=== PATIENT | male | born 1935 | race Caucasian/White ===

== ENCOUNTER 2023-10-09 15:12 | Emergency (ER) | payer MEDICARE ==
[2023-10-09] MEDS ORDERED: Ketorolac Tromethamine 30 MG (1 mL) VIAL ONE (16:28)
== END 2023-10-09 18:02 | disposition home or self-care (01) ==
LOC: MADERS 15:12
DX: M16.12 Unilateral primary osteoarthritis, left hip (principal)
CPT/HCPCS: J1885

== ENCOUNTER 2024-01-02 14:07 | Inpatient (IN) | payer MEDICARE ==
[2024-01-02 16:09] VITALS: BMI 19.8
[2024-01-02] MEDS ORDERED: Milk Of Magnesia 30 ML UDCUP PO PRN (16:21)
[2024-01-02] MEDS: Lantiseptic Ointment 130 GM JAR TOP SCH (21:02)
[2024-01-02] MEDS: Arformoterol 15 MCG/2 ML NEB NEB SCH (21:02)
[2024-01-02] MEDS: Nitrofurantoin Monohyd/M-Cryst 100 MG CAP PO SCH (21:03)
[2024-01-02] MEDS: Simvastatin 20 MG TAB PO SCH (21:03)
[2024-01-02] MEDS: Gabapentin 100 MG CAP PO SCH (21:03)
[2024-01-02] MEDS: Metoprolol Tartrate 50 MG TAB PO SCH (21:03)
[2024-01-02] MEDS: Senokot S 8.6-50 MG TAB PO SCH (21:03)
[2024-01-02] MEDS: Doxycycline 100 MG CAP PO SCH (21:03)
[2024-01-02] MEDS: Apixaban 2.5 MG TAB PO SCH (21:04)
[2024-01-02] MEDS: guaiFENesin ER 600 MG TAB PO SCH (21:04)
[2024-01-03] MEDS: Pantoprazole DR 40 MG TAB PO SCH (08:28)
[2024-01-03] MEDS: Furosemide 20 MG TAB PO SCH (08:28)
[2024-01-03] MEDS: Amlodipine 5 MG TAB PO SCH (08:28)
[2024-01-03] MEDS: Empagliflozin 10 MG TAB PO SCH (08:28)
[2024-01-03] MEDS: Folic Acid 1 MG TAB PO SCH (08:29)
[2024-01-03] MEDS: Finasteride 5 MG TAB PO SCH (08:29)
[2024-01-03] MEDS: Ferrous Gluconate 324 MG TAB PO SCH (08:29)
[2024-01-03] MEDS: Tamsulosin HCl 0.4 MG CAP PO SCH (08:30)
[2024-01-03] MEDS: Melatonin 3 MG TAB PO PRN (20:36)
[2024-01-04 07:26] LABS: #Eosinphils 0.1 thou/uL (0.0-0.7); #Lymphocytes 1.3 thou/uL (1.20-3.40); #Monocytes 0.5 thou/uL (0.11-0.59); #Neutrophils 5.6 thou/uL (1.40-6.50); %Basophils 0.5 % (0.0-1.0); %Eosinophils 1.3 % (0.0-10.0); %Lymphocytes 17.7 % (21.0-51.0); %Monocytes 5.9 % (0.0-10.0); %Neutrophils 74.5 % (42.0-75.0); Hematocrit 40.8 % (42.0-52.0); Mean Corpuscular HGB CONC 29.3 g/dL (32.0-36.0); Mean Corpuscular Hemoglobin 30.6 pg (27.0-31.0); Mean Corpuscular Volume 104.4 fl (78.0-98.0); Mean Platelet Volume 6.2 fL (7.4-10.4); Platelet Count 189 10x3/uL (130-400); RBC Distribution Width 17.4 % (11.5-14.5); Red Blood Cell (RBC) Count 3.91 mill/uL (4.70-6.10); White Blood Cell (WBC) Count 7.6 10x3/uL (4.8-10.8)
[2024-01-04 07:30] LABS: Anion Gap 14 mmol/L (10-20); BUN (Urea Nitrogen) 38 mg/dL (8.4-25.7); Calc. Creatinine Clearance 28 mL/min (70-130); Calcium 9.1 mg/dL (7.8-10.44); Carbon Dioxide 28 mmol/L (23-31); Chloride 103 mmol/L (98-107); Estimated GFR 41; Glucose 85 mg/dL (83-110); Potassium 3.9 mmol/L (3.5-5.1); Sodium 141 mmol/L (136-145)
[2024-01-04] MEDS: Ipratropium/Albuterol 3 ML NEB NEB PRN (08:29)
[2024-01-05] MEDS: Acetaminophen 325 MG TAB PO PRN (11:36)
[2024-01-10 10:59] VITALS: BMI 19.7
[2024-01-13 08:13] VITALS: BP 116/54; TEMP 98.1
== END 2024-01-13 13:45 | disposition home or self-care (01) | DRG 947 ==
LOC: MADMS 15:25
PROVIDERS: ADMIT Family Medicine; ATTEND Family Medicine
DX: R53.81 Other malaise (principal); J18.9 Pneumonia, unspecified organism; N39.0 Urinary tract infection, site not specified; L03.116 Cellulitis of left lower limb; D61.818 Other pancytopenia; I50.32 Chronic diastolic (congestive) heart failure; R53.1 Weakness; I48.0 Paroxysmal atrial fibrillation; Z79.01 Long term (current) use of anticoagulants; Z99.81 Dependence on supplemental oxygen; I25.10 Atherosclerotic heart disease of native coronary artery without angina pectoris; Z79.899 Other long term (current) drug therapy; I25.2 Old myocardial infarction; N40.0 Benign prostatic hyperplasia without lower urinary tract symptoms; Z98.890 Other specified postprocedural states; Z87.891 Personal history of nicotine dependence; N18.30 Chronic kidney disease, stage 3 unspecified; Z66 Do not resuscitate
CPT/HCPCS: 36415; 71046; 80048; 85025; 97602; J7620

== ENCOUNTER 2024-01-28 18:23 | Emergency (ER) | payer MEDICARE ==
[2024-01-28] MEDS ORDERED: Sodium Chloride 0.9% 100 ML ONE (19:23)
[2024-01-28] MEDS ORDERED: Acetaminophen 500 MG TAB ONE (19:23)
[2024-01-28] MEDS ORDERED: Vancomycin 1 GM VIAL ONE (19:23)
[2024-01-28] MEDS ORDERED: Ondansetron PF 4 MG/2 ML Vial ONE (19:23)
[2024-01-28] MEDS ORDERED: Piperacillin/Tazobactam 4.5 GM VIAL ONE (19:23)
[2024-01-28] MEDS ORDERED: Sodium Chloride 0.9% 250 ML 250 ML ONE (19:25)
[2024-01-28 19:29] LABS: Anisocytosis SLIGHT = 6-15 cells (100X) (0-5/hpf); Band 6 % (5-11); Eosinophils 1 % (0-10); Hematocrit 32.5 % (42.0-52.0); Hemoglobin 9.6 g/dL (14.0-18.0); Hypochromia SLIGHT = 6-15 cells (100X) (0-5/hpf); Lymphocytes 3 % (21-51); MDiff Complete? YES; Macrocytosis SLIGHT = 6-15 cells (100X) (0-5/hpf); Mean Corpuscular HGB CONC 29.5 g/dL (32.0-36.0); Mean Corpuscular Hemoglobin 32.5 pg (27.0-31.0); Mean Platelet Volume 6.2 fL (7.4-10.4); Monocytes 2 % (0-10); Neutrophil 84 % (42-75); Platelet Count 105 10x3/uL (130-400); Poikilocytosis SLIGHT = 6-15 cells (100X) (0-5/hpf); Polychromasia SLIGHT = 2-3 cells (100X) (0-2/hpf); RBC Distribution Width 18.5 % (11.5-14.5); Red Blood Cell (RBC) Count 2.96 mill/uL (4.70-6.10); Troponin I 0.022 ng/mL (< 0.028); White Blood Cell (WBC) Count 7.3 10x3/uL (4.8-10.8)
[2024-01-28 19:30] LABS: ALT (SGPT) 15 U/L (8-55); AST (SGOT) 21 U/L (5-34); Albumin 3.7 g/dL (3.4-4.8); Alkaline Phosphatase 218 U/L (40-110); Anion Gap 20 mmol/L (10-20); BUN (Urea Nitrogen) 42 mg/dL (8.4-25.7); Bilirubin, Total 1.5 mg/dL (0.2-1.2); Calc. Creatinine Clearance 0 mL/min (70-130); Carbon Dioxide 22 mmol/L (23-31); Chloride 105 mmol/L (98-107); Estimated GFR 20; Globulin 3.3 g/dL (2.4-3.5); Glucose 95 mg/dL (83-110); Lipase 53 U/L (8-78); Magnesium 2.5 mg/dL (1.6-2.6); Manual Diff?? YES; Platelet Adequacy Comment Appears Decreased; Potassium 4.5 mmol/L (3.5-5.1); Reactive Lymphocytes 4 % (0-10); Sodium 142 mmol/L (136-145)
[2024-01-28 20:02] LABS: Influenza A by NAA Not Detected (NotDetected); Influenza B by NAA Not Detected (NotDetected); SARS-CoV-2 NAA Rapid Test Not Detected (NotDetected)
[2024-01-28 20:46] LABS: Bilirubin Negative (Negative); Blood, Urine Negative (Negative); CAUTI Indications for Culture Fever or rigors; Clarity Clear (Clear); Glucose, Urine (Dipstick) 100 mg/dL (Negative); Ketone, Urine Negative (Negative); Leukocyte Negative (Negative); Nitrite Negative (Negative); Protein, Urine (Dipstick) Negative (Neg-Trace); RBC/HPF None Seen HPF (0-3); Specific Gravity, Urine 1.015 (1.005-1.030); Squamous Epithelial 0-3 HPF (0-3); Urobilinogen 0.2 mg/dL (Less than 2); WBC/HPF None Seen HPF (0-3)
[2024-01-28 20:47] LABS: Urine Culture Reflex No No
[2024-01-28] MEDS ORDERED: Sodium Chloride 0.9% 1,000 ML ONE (21:29)
== END 2024-01-28 23:57 | disposition short-term general hospital (02) ==
LOC: MADERS 18:23
DX: R50.9 Fever, unspecified (principal); N17.9 Acute kidney failure, unspecified; R53.1 Weakness; I11.0 Hypertensive heart disease with heart failure; I50.9 Heart failure, unspecified
CPT/HCPCS: 71045; 74176; 80053; 81001; 83605; 83690; 83735; 83880; 84484; 85025; 87040; 87077; 87086; 87149; 87186; 93005; 96365; 96366; 96375; J2405; J2543; J3370; J3490; J7050

== ENCOUNTER 2024-02-12 07:56 | Day surgery (SDC) | payer MEDICARE | END 2024-02-12 08:30 | disposition home or self-care (01) | LOC: MADER/OP 07:56 → EDSTATUS 14:16 | PROVIDERS: ATTEND Radiology Vascular & Interventional Radiology | DX: Z45.2 Encounter for adjustment and management of vascular access device (principal) | CPT/HCPCS: J1642 ==

== ENCOUNTER 2024-04-10 14:33 | Inpatient (IN) | payer MEDICARE, OTHER ==
[2024-04-10 19:16] VITALS: BMI 23.3
[2024-04-10] MEDS: Tamsulosin HCl 0.4 MG CAP PO SCH (21:21)
[2024-04-10] MEDS: HYDROcodone/Acetaminophen 10/325 mg Tablet PO PRN (21:21)
[2024-04-10] MEDS: Gabapentin 100 MG CAP PO SCH (21:22)
[2024-04-10] MEDS: Simvastatin 5 MG TAB PO SCH (21:23)
[2024-04-10] MEDS: Arformoterol 15 MCG/2 ML NEB NEB SCH (21:23)
[2024-04-10] MEDS: Senokot S 8.6-50 MG TAB PO SCH (21:23)
[2024-04-11] MEDS: Acetaminophen/Codeine 30-300mg Tablet PO PRN (01:44)
[2024-04-11] MEDS ORDERED: EPOETIN ALFA-EPBX (ESRD) 10,000 UNITS/ML VIAL SC SCH (09:00)
[2024-04-11] MEDS: Sodium Bicarbonate Tab 325 MG TAB PO SCH (09:41)
[2024-04-11] MEDS: Ferrous Sulfate 300 MG (5 mL) UDCUP PO SCH (09:41)
[2024-04-11] MEDS: Folic Acid 1 MG TAB PO SCH (09:44)
[2024-04-11] MEDS: Empagliflozin 10 MG TAB PO SCH (09:44)
[2024-04-11] MEDS: Pantoprazole DR 40 MG TAB PO SCH (09:44)
[2024-04-11] MEDS: Aspirin 81 mg Enteric Coated Tablet PO SCH (09:44)
[2024-04-11] MEDS: Finasteride 5 MG TAB PO SCH (09:45)
[2024-04-11] MEDS: Amlodipine 5 MG TAB PO SCH (09:45)
[2024-04-11] MEDS: Ferrous Gluconate 324 MG TAB PO SCH (09:47)
[2024-04-11] MEDS: Metoprolol Tartrate 25 MG TAB PO SCH ×2 (10:05→20:31)
[2024-04-11] MEDS: Bacitracin 1 PK TOP SCH ×2 (11:54→20:31)
[2024-04-11] MEDS: Ondansetron ODT 4 MG TAB PO PRN (21:19)
[2024-04-12] MEDS: HYDROcodone/Acetaminophen 10/325 mg Tablet PO PRN (04:57)
[2024-04-12 05:23] LABS: ALT (SGPT) 10 U/L (8-55); AST (SGOT) 20 U/L (5-34); Albumin 2.4 g/dL (3.4-4.8); Alkaline Phosphatase 139 U/L (40-110); Anion Gap 14 mmol/L (10-20); BUN (Urea Nitrogen) 29 mg/dL (8.4-25.7); Bilirubin, Total 2.9 mg/dL (0.2-1.2); Calc. Creatinine Clearance 40 mL/min (70-130); Calcium 8.6 mg/dL (7.8-10.44); Carbon Dioxide 22 mmol/L (23-31); Chloride 109 mmol/L (98-107); Estimated GFR 52; Globulin 3.4 g/dL (2.4-3.5); Glucose 104 mg/dL (83-110); Potassium 4.3 mmol/L (3.5-5.1); Protein, Total 5.8 g/dL (5.8-8.1); Sodium 141 mmol/L (136-145)
[2024-04-12 05:24] LABS: Anisocytosis SLIGHT = 6-15 cells (100X) (0-5/hpf); Band 3 % (5-11); Eosinophils 3 % (0-10); Hematocrit 26.8 % (42.0-52.0); Hemoglobin 8.2 g/dL (14.0-18.0); Lymphocytes 16 % (21-51); MDiff Complete? YES; Macrocytosis SLIGHT = 6-15 cells (100X) (0-5/hpf); Mean Corpuscular HGB CONC 30.8 g/dL (32.0-36.0); Mean Corpuscular Hemoglobin 30.6 pg (27.0-31.0); Mean Corpuscular Volume 99.6 fl (78.0-98.0); Mean Platelet Volume 6.5 fL (7.4-10.4); Monocytes 8 % (0-10); Neutrophil 70 % (42-75); Ovalocytes SLIGHT = 2-5 cells (100X) (0-1/hpf); Platelet Adequacy Comment Appears Decreased; Platelet Count 93 10x3/uL (130-400); Polychromasia SLIGHT = 2-3 cells (100X) (0-2/hpf); RBC Distribution Width 21.1 % (11.5-14.5); Red Blood Cell (RBC) Count 2.69 mill/uL (4.70-6.10); White Blood Cell (WBC) Count 6.2 10x3/uL (4.8-10.8)
[2024-04-12] MEDS: Ferrous Sulfate 300 MG (5 mL) UDCUP PO SCH (08:10)
[2024-04-13] MEDS: Acetaminophen 325 MG TAB PO PRN (09:01)
[2024-04-13 09:53] LABS: ALT (SGPT) 11 U/L (8-55); AST (SGOT) 21 U/L (5-34); Albumin 2.6 g/dL (3.4-4.8); Alkaline Phosphatase 139 U/L (40-110); Anion Gap 14 mmol/L (10-20); BUN (Urea Nitrogen) 42 mg/dL (8.4-25.7); Bilirubin, Total 3.4 mg/dL (0.2-1.2); Calc. Creatinine Clearance 33 mL/min (70-130); Calcium 8.5 mg/dL (7.8-10.44); Carbon Dioxide 22 mmol/L (23-31); Chloride 108 mmol/L (98-107); Estimated GFR 43; Globulin 3.2 g/dL (2.4-3.5); Glucose 102 mg/dL (83-110); Potassium 4.7 mmol/L (3.5-5.1); Protein, Total 5.8 g/dL (5.8-8.1); Sodium 139 mmol/L (136-145)
[2024-04-13 10:02] LABS: Anisocytosis SLIGHT = 6-15 cells (100X) (0-5/hpf); Band 12 % (5-11); Eosinophils 1 % (0-10); Hematocrit 25.9 % (42.0-52.0); Hemoglobin 7.9 g/dL (14.0-18.0); Hypochromia SLIGHT = 6-15 cells (100X) (0-5/hpf); Lymphocytes 9 % (21-51); MDiff Complete? YES; Macrocytosis SLIGHT = 6-15 cells (100X) (0-5/hpf); Mean Corpuscular HGB CONC 30.4 g/dL (32.0-36.0); Mean Corpuscular Hemoglobin 30.5 pg (27.0-31.0); Mean Corpuscular Volume 100.4 fl (78.0-98.0); Mean Platelet Volume 6.5 fL (7.4-10.4); Monocytes 5 % (0-10); Neutrophil 73 % (42-75); Platelet Adequacy Comment Appears Decreased; Platelet Count 83 10x3/uL (130-400); Red Blood Cell (RBC) Count 2.58 mill/uL (4.70-6.10); White Blood Cell (WBC) Count 4.2 10x3/uL (4.8-10.8)
[2024-04-13] MEDS: Piperacillin/Tazobactam 3.375 GM in Sodium Chloride 0.9% 100 ML IVPB SCH ×3 (11:17→16:11)
[2024-04-13] MEDS: Sodium Chloride 0.9% 1,000 ML IV SCH (11:19)
[2024-04-13 11:54] LABS: Blood, Urine Negative (Negative); Glucose, Urine (Dipstick) 500 mg/dL (Negative); Ketone, Urine Negative (Negative); Leukocyte Negative (Negative); Nitrite Negative (Negative); Protein, Urine (Dipstick) Negative (Neg-Trace); Specific Gravity, Urine 1.015 (1.005-1.030)
[2024-04-13 11:56] LABS: Bilirubin Unable to Interpret (Negative); Clarity Hazy (Clear); Urobilinogen UNABLE TO INTERPRET mg/dL (Less than 2)
[2024-04-13 12:02] LABS: Bacteria/HPF 2+ HPF (None Seen); CAUTI Indications for Culture Fever or rigors; RBC/HPF 0-3 HPF (0-3); WBC/HPF 0-3 HPF (0-3)
[2024-04-13 12:03] LABS: Urine Culture Reflex No No
[2024-04-13] MEDS: Vancomycin 1 GM in Sodium Chloride 0.9% 250 ML 250 ML IVPB SCH (12:37)
[2024-04-13] MEDS: Vancomycin HCl 750 MG in Sodium Chloride 0.9% 250 ML 250 ML IVPB SCH (14:06)
[2024-04-13] MEDS ORDERED: Vancomycin Dose by Levels Sliding Scale (Wt 71-99) FS SCH (19:45)
[2024-04-13] MEDS ORDERED: Vancomycin 1.5 GM in Sodium Chloride 0.9% 250 ML 300 ML IVPB SCH (21:00)
[2024-04-14 12:34] LABS: Vancomycin, Trough 11.9 ug/mL
[2024-04-14] MEDS: Vancomycin HCl 750 MG in Sodium Chloride 0.9% 250 ML 250 ML IVPB SCH (13:41)
[2024-04-15 06:01] LABS: Eosinophils 4 % (0-10); Hematocrit 22.9 % (42.0-52.0); Hemoglobin 6.9 g/dL (14.0-18.0); Lymphocytes 24 % (21-51); MDiff Complete? YES; Mean Corpuscular HGB CONC 29.9 g/dL (32.0-36.0); Mean Corpuscular Hemoglobin 30.2 pg (27.0-31.0); Mean Platelet Volume 7.4 fL (7.4-10.4); Monocytes 9 % (0-10); Neutrophil 63 % (42-75); Platelet Count 81 10x3/uL (130-400); RBC Distribution Width 20.2 % (11.5-14.5); Red Blood Cell (RBC) Count 2.27 mill/uL (4.70-6.10); White Blood Cell (WBC) Count 2.9 10x3/uL (4.8-10.8)
[2024-04-15 06:08] LABS: ALT (SGPT) 10 U/L (8-55); AST (SGOT) 19 U/L (5-34); Albumin 2.3 g/dL (3.4-4.8); Alkaline Phosphatase 120 U/L (40-110); Anion Gap 12 mmol/L (10-20); BUN (Urea Nitrogen) 56 mg/dL (8.4-25.7); Calc. Creatinine Clearance 32 mL/min (70-130); Calcium 8.3 mg/dL (7.8-10.44); Carbon Dioxide 21 mmol/L (23-31); Chloride 110 mmol/L (98-107); Estimated GFR 40; Globulin 2.8 g/dL (2.4-3.5); Glucose 89 mg/dL (83-110); Potassium 4.6 mmol/L (3.5-5.1); Protein, Total 5.1 g/dL (5.8-8.1); Sodium 138 mmol/L (136-145)
[2024-04-15 12:33] LABS: Vancomycin, Random 14.2 ug/mL (See Comment)
[2024-04-15] MEDS: Vancomycin HCl 750 MG in Sodium Chloride 0.9% 250 ML 250 ML IVPB SCH (13:59)
[2024-04-15] MEDS ORDERED: Triamcinolone 0.1% Cream 15 GM TUBE TOP PRN (16:26)
[2024-04-15] MEDS: Ferrous Sulfate 325 MG TAB PO SCH (16:35)
[2024-04-15 16:49] LABS: Hematocrit 22.9 % (42.0-52.0); Hemoglobin 6.9 g/dL (14.0-18.0)
[2024-04-16] MEDS: Triamcinolone 0.1% Cream 15 GM TUBE TOP SCH (00:35)
[2024-04-16 05:14] LABS: Hematocrit 25.3 % (42.0-52.0); Hemoglobin 7.8 g/dL (14.0-18.0)
[2024-04-16] MEDS: Piperacillin/Tazobactam 3.375 GM in Sodium Chloride 0.9% 100 ML IVPB SCH (05:56)
[2024-04-16] MEDS: Furosemide 20 MG TAB PO SCH (05:56)
[2024-04-16] MEDS: Emollient 15 oz bottle 450 ML, Triamcinolone Acetonide 200 MG TOP SCH (08:58)
[2024-04-16] MEDS ORDERED: Emollient 15 oz bottle 450 ML, Triamcinolone Acetonide 200 MG TOP PRN (09:00)
[2024-04-16] MEDS: Keri Lotion 15 oz BOT TOP PRN (11:39)
[2024-04-16 14:21] LABS: Vancomycin, Trough 14.8 ug/mL
[2024-04-16] MEDS: Vancomycin HCl 750 MG in Sodium Chloride 0.9% 250 ML 250 ML IVPB SCH (18:00)
[2024-04-16] MEDS: Keri Lotion 15 oz BOT TOP SCH (20:18)
[2024-04-17] MEDS: Triamcinolone 0.1% Cream 15 GM TUBE TOP PRN (16:34)
[2024-04-17] MEDS ORDERED: Polyethylene Glycol 3350 17 GM Packet PER TUBE PRN (17:49)
[2024-04-17] MEDS: Polyethylene Glycol 3350 17 GM Packet PO PRN (19:55)
[2024-04-18 05:49] LABS: Vancomycin, Random 19.5 ug/mL (See Comment)
[2024-04-18] MEDS ORDERED: Emollient 15 oz bottle 450 ML, Triamcinolone Acetonide 200 MG TOP PRN (10:08)
[2024-04-18] MEDS: Emollient 15 oz bottle 450 ML, Triamcinolone Acetonide 200 MG TOP SCH (21:12)
[2024-04-19] MEDS: Proctozone-HC 30 GM TUBE TOP PRN (04:02)
[2024-04-19 08:50] LABS: Hematocrit 25.5 % (42.0-52.0); Hemoglobin 7.7 g/dL (14.0-18.0); Mean Corpuscular HGB CONC 30.2 g/dL (32.0-36.0); Mean Corpuscular Hemoglobin 30.1 pg (27.0-31.0); Mean Corpuscular Volume 99.7 fl (78.0-98.0); Mean Platelet Volume 7.1 fL (7.4-10.4); Platelet Count 94 10x3/uL (130-400); RBC Distribution Width 19.3 % (11.5-14.5); Red Blood Cell (RBC) Count 2.55 mill/uL (4.70-6.10); White Blood Cell (WBC) Count 3.2 10x3/uL (4.8-10.8)
[2024-04-20 05:38] LABS: Vancomycin, Random 22.4 ug/mL (See Comment)
[2024-04-20 06:09] LABS: Band 1 % (5-11); Eosinophils 6 % (0-10); Hematocrit 23.6 % (42.0-52.0); Hemoglobin 7.1 g/dL (14.0-18.0); Lymphocytes 31 % (21-51); MDiff Complete? YES; Mean Corpuscular HGB CONC 30.2 g/dL (32.0-36.0); Mean Corpuscular Volume 99.2 fl (78.0-98.0); Mean Platelet Volume 6.9 fL (7.4-10.4); Monocytes 8 % (0-10); Neutrophil 53 % (42-75); Nucleated RBC (Manual Ct) 3 % (0); Platelet Count 85 10x3/uL (130-400); RBC Distribution Width 19.1 % (11.5-14.5); Red Blood Cell (RBC) Count 2.38 mill/uL (4.70-6.10); White Blood Cell (WBC) Count 2.1 10x3/uL (4.8-10.8)
[2024-04-20] MEDS: Metoprolol Tartrate 25 MG TAB PO SCH (21:07)
[2024-04-21] MEDS: Amlodipine 5 MG TAB PO SCH (09:10)
[2024-04-21 09:55] LABS: Hematocrit 25.6 % (42.0-52.0); Hemoglobin 7.8 g/dL (14.0-18.0); Mean Corpuscular HGB CONC 30.4 g/dL (32.0-36.0); Mean Corpuscular Hemoglobin 30.3 pg (27.0-31.0); Mean Corpuscular Volume 99.6 fl (78.0-98.0); Mean Platelet Volume 6.2 fL (7.4-10.4); Platelet Count 101 10x3/uL (130-400); RBC Distribution Width 18.9 % (11.5-14.5); Red Blood Cell (RBC) Count 2.57 mill/uL (4.70-6.10); White Blood Cell (WBC) Count 2.4 10x3/uL (4.8-10.8)
[2024-04-22] MEDS: traMADol HCl 50 MG TAB PO SCH (21:29)
[2024-04-24 12:10] VITALS: BMI 23.8
[2024-04-25] MEDS: Megestrol Acetate 400 MG/10 ML UDCUP PO SCH (09:35)
[2024-04-27] MEDS: Aspirin 325 MG TAB PO SCH (09:23)
[2024-04-28 05:16] LABS: Hematocrit 26.5 % (42.0-52.0); Platelet Count 94 10x3/uL (130-400)
[2024-04-29 05:33] LABS: ALT (SGPT) 10 U/L (8-55); AST (SGOT) 22 U/L (5-34); Albumin 2.3 g/dL (3.4-4.8); Alkaline Phosphatase 206 U/L (40-110); Anion Gap 13 mmol/L (10-20); BUN (Urea Nitrogen) 26 mg/dL (8.4-25.7); Bilirubin, Total 1.1 mg/dL (0.2-1.2); Calc. Creatinine Clearance 41 mL/min (70-130); Calcium 8.5 mg/dL (7.8-10.44); Carbon Dioxide 20 mmol/L (23-31); Chloride 112 mmol/L (98-107); Estimated GFR 53; Globulin 3.5 g/dL (2.4-3.5); Glucose 98 mg/dL (83-110); Potassium 4.4 mmol/L (3.5-5.1); Protein, Total 5.8 g/dL (5.8-8.1); Sodium 141 mmol/L (136-145)
[2024-04-29 05:35] LABS: #Basophils 0.1 thou/uL (0.0-0.2); #Eosinphils 0.1 thou/uL (0.0-0.7); #Lymphocytes 1.8 thou/uL (1.20-3.40); #Monocytes 0.5 thou/uL (0.11-0.59); %Basophils 1.8 % (0.0-1.0); %Eosinophils 1.8 % (0.0-10.0); %Monocytes 10.3 % (0.0-10.0); %Neutrophils 45.2 % (42.0-75.0); Hematocrit 24.1 % (42.0-52.0); Hemoglobin 7.4 g/dL (14.0-18.0); Mean Corpuscular HGB CONC 30.6 g/dL (32.0-36.0); Mean Platelet Volume 7.5 fL (7.4-10.4); Platelet Count 90 10x3/uL (130-400); RBC Distribution Width 20.2 % (11.5-14.5); Red Blood Cell (RBC) Count 2.46 mill/uL (4.70-6.10); White Blood Cell (WBC) Count 4.5 10x3/uL (4.8-10.8)
[2024-05-03 07:18] VITALS: BP 131/64; TEMP 98.1
== END 2024-05-03 12:45 | DRG 559 ==
LOC: MADMS 17:34
PROVIDERS: ADMIT Family Medicine; ATTEND Family Medicine
PROC: 30233N1 Transfusion of Nonautologous Red Blood Cells into Peripheral Vein, Percutaneous Approach (ICD-10-PCS; principal; 2024-04-15)
DX: S72.141D Displaced intertrochanteric fracture of right femur, subsequent encounter for closed fracture with routine healing (principal); I60.9 Nontraumatic subarachnoid hemorrhage, unspecified; I77.74 Dissection of vertebral artery; J18.9 Pneumonia, unspecified organism; I50.32 Chronic diastolic (congestive) heart failure; D61.818 Other pancytopenia; D62 Acute posthemorrhagic anemia; R53.81 Other malaise; W22.10XD Striking against or struck by unspecified automobile airbag, subsequent encounter; Z95.0 Presence of cardiac pacemaker; J44.9 Chronic obstructive pulmonary disease, unspecified; N40.0 Benign prostatic hyperplasia without lower urinary tract symptoms; Z79.899 Other long term (current) drug therapy; I25.2 Old myocardial infarction; Z98.890 Other specified postprocedural states; S12.100D Unspecified displaced fracture of second cervical vertebra, subsequent encounter for fracture with routine healing; I48.0 Paroxysmal atrial fibrillation; Z79.82 Long term (current) use of aspirin; I11.0 Hypertensive heart disease with heart failure; Z66 Do not resuscitate; I25.10 Atherosclerotic heart disease of native coronary artery without angina pectoris
CPT/HCPCS: 36415; 36430; 70450; 71045; 72125; 80053; 80202; 81001; 82274; 82565; 83605; 85014; 85018; 85025; 85027; 85049; 86850; 86900; 86901; 87040; 87081; J2543; J3301; J3370; J7030; J7050; P9016; Q0162